=== PATIENT | male | born 1945 | race Caucasian/White ===

== ENCOUNTER → 2017-08-07 | Outpatient (CLI) | payer OTHER, MEDICAID ==
[2016-08-30 14:52] VITALS: BP 117/72
--- NOTE | 2017-08-08 12:17 | CT ---
HISTORY: Back pain. Status post fall 3 weeks prior. Study: Computed tomography of the lumbar spine: Multiple axial images were obtained throughout the lumbar spine with subsequent reformatting in the sagittal and coronal planes. Comparison: None Findings: Examination of the sagittal images reveals loss of normal lumbar lordosis. 4-5 mm of retrolisthesis of L5 on S1 is noted. Moderate disc space narrowing is noted at L1/L2 with moderately severe at L3/L 4 and severe at L4/L5 and L5/S1. There is vacuum disc formation noted at these levels as well. Ther e is severe endplate deformity at L3/L4 with vacuum disc formation and possibly atypical appearing ga s in the disc space. There is suggestion of possible bony destruction involving L3/L4 adjacent endpl ates. I cannot exclude the possibility of discitis/osteomyelitis. Several lucent lesions are presen t within the L4 vertebral body. There is also lucent lesion within the superior endplate of L5, poss ibly a Schmorl's node. Moderately severe anterior spurring is noted at L1/L2, L4/L5 and L5/S1. Ther e is a vague lucent lesion involving the left side of the T11 vertebral body, possibly an atypical he mangioma. T10/T11: Incompletely visualized. No discrete abnormalities are identified. T11/T12: There is an atypical lucent lesion is present in the left side of the T11 vertebral body, p ossibly an atypical hemangioma. T12/L1: Minimal disc bulging. Minimal facet arthropathy. No other significant abnormalities. L1/L2: Moderate diffuse disc bulging. Disc bulging extends into both neural foramen. Mild facet ar thropathy. Mild spinal stenosis. L2/L3: Moderate diffuse disc bulging. Moderate facet arthropathy. No other significant abnormaliti es. L3/L4: There is diffuse endplate abnormality consisting of sclerosis as well as multiple lucent lesi ons and bony irregularity. This involves predominantly the inferior endplate of L3 but more so in th e superior endplate of L4. I cannot exclude discitis/osteomyelitis. Further evaluation is recommend ed. Moderately severe disc bulging. Moderate facet arthropathy. Moderate thickening of the ligamen candy flavum. Moderately severe spinal stenosis. L4/L5: Moderate diffuse disc bulging. There appears to be a bony spur extending into the spinal can al. Moderately severe spinal stenosis is noted. Moderate facet arthropathy is present. Moderately severe foraminal stenosis is noted, right greater than left. L5/S1: Moderate diffuse disc bulging. Mild facet arthropathy. Bone spurs extending into the spinal canal. Minimal spinal stenosis. IMPRESSION: 1. Lumbar spondylosis as described above. 2. There is marked endplate abnormality at L3/L4 with findings suggesting the possibility of disciti s. I cannot exclude an inflammatory process including osteomyelitis. Clinical correlation is recomm ended. MRI without and with contrast is recommended for further evaluation. 3. Please see detailed report above. Reported By:
== END | disposition home or self-care (01) | DRG 552 ==
LOC: RAD 13:04
PROVIDERS: ATTEND Specialist
DX: M51.37 Other intervertebral disc degeneration, lumbosacral region (principal); M12.88 Other specific arthropathies, not elsewhere classified, other specified site; M51.26 Other intervertebral disc displacement, lumbar region
CPT/HCPCS: 72131

== ENCOUNTER 2017-09-11 09:59 | Day surgery (SDC) | payer OTHER, MEDICAID ==
[2017-09-11] MEDS ORDERED: KENALOG INJ 40 MG IM ONE ×2 (10:26→10:45)
[2017-09-11] MEDS ORDERED: XYLOCAINE 1 % (PLAIN) ONE (10:26)
[2017-09-11] MEDS ORDERED: MARCAINE 0.25% INJ ONE (10:26)
--- NOTE | 2017-09-11 10:29 | DR.UPDATE ---
H&P Update History and Physical Update: History and Physical reviewed and patient examined. Changes noted: NO Yes with the following:Agree with H&P from Dr Brunner. will proced with jennifer L4-5
[2017-09-11] MEDS ORDERED: SOLU MEDROL 500 MG ONE (10:49)
[2017-09-11] MEDS ORDERED: DECADRON INJ ONE (10:50)
[2017-09-11 11:04] VITALS: BP 132/68
== END 2017-09-11 10:10 | disposition home or self-care (01) ==
LOC: SURG1 09:59
PROVIDERS: ATTEND Specialist
PROC: 3E0R3BZ Introduction of Anesthetic Agent into Spinal Canal, Percutaneous Approach (ICD-10-PCS; principal; 2017-09-11 10:15)
PROC: 3E0133Z Introduction of Anti-inflammatory into Subcutaneous Tissue, Percutaneous Approach (ICD-10-PCS; principal; 2017-09-11 10:15)
DX: M48.061 Spinal stenosis, lumbar region without neurogenic claudication (principal)
CPT/HCPCS: 62323; 76000; S0020; J1100; J2001; J2930; J3301

== ENCOUNTER 2018-01-21 11:38 | Day surgery (SDC) | payer OTHER, MEDICAID ==
--- NOTE | 2018-01-21 12:01 | DR.UPDATE ---
H&P Update History and Physical Update: History and Physical reviewed and patient examined. Changes noted: NO Yes with the following:Agree with H&P from Dr Houston. Will proceed with L3-4 jennifer right side
[2018-01-21] MEDS: MARCAINE 0.25% INJ ONE ×2 (12:07→12:23)
[2018-01-21] MEDS: KENALOG INJ 40 MG IM ONE ×2 (12:08→12:23)
[2018-01-21 12:37] VITALS: BP 138/72
== END 2018-01-21 12:41 | disposition home or self-care (01) ==
LOC: SURG1 11:38
PROVIDERS: ATTEND Orthopaedic Surgery
PROC: 3E0R3BZ Introduction of Anesthetic Agent into Spinal Canal, Percutaneous Approach (ICD-10-PCS; principal; 2018-01-21 12:00)
PROC: 3E0R33Z Introduction of Anti-inflammatory into Spinal Canal, Percutaneous Approach (ICD-10-PCS; principal; 2018-01-21 12:00)
DX: M51.36 Other intervertebral disc degeneration, lumbar region (principal)
CPT/HCPCS: 62323; 76000; A4222; S0020; J3301